=== PATIENT | female | born 1935 | race Caucasian/White ===

== ENCOUNTER 2018-07-04 12:23 | Outpatient (CLI) | payer OTHER | END 2018-07-04 12:40 | disposition home or self-care (01) | LOC: OFIC 805 12:23 | DX: R42 Dizziness and giddiness (principal) ==

== ENCOUNTER 2021-04-28 15:50 | Outpatient (CLI) | payer OTHER | END 2021-04-28 15:53 | disposition home or self-care (01) | LOC: PPH VACUNA 15:50 | PROVIDERS: ATTEND Emergency Medicine Pediatric Emergency Medicine | DX: Z23 Encounter for immunization (principal) ==

== ENCOUNTER 2021-10-24 08:37 | Outpatient (CLI) | payer OTHER | END 2021-10-24 08:54 | disposition home or self-care (01) | LOC: MRI 08:37 | PROVIDERS: ATTEND Physical Medicine & Rehabilitation | DX: M54.59 Other low back pain (principal) | CPT/HCPCS: 72148 ==

== ENCOUNTER 2021-11-17 07:18 | Outpatient (CLI) | payer OTHER | END 2021-11-17 07:21 | disposition home or self-care (01) | LOC: NUCLEAR 07:18 | PROVIDERS: ATTEND Internal Medicine Gastroenterology | DX: K59.1 Functional diarrhea (principal) | CPT/HCPCS: 78227; A9537; J2805 ==

== ENCOUNTER 2021-11-23 08:00 | Outpatient (CLI) | payer OTHER | END 2021-11-23 08:30 | disposition home or self-care (01) | LOC: PPH VACUNA 08:00 | PROVIDERS: ATTEND Emergency Medicine Pediatric Emergency Medicine | DX: Z23 Encounter for immunization (principal); Z71.85 Encounter for immunization safety counseling ==

== ENCOUNTER 2022-02-15 12:04 | Outpatient (CLI) | payer OTHER | END 2022-02-15 12:09 | disposition home or self-care (01) | LOC: LAB 12:04 | PROVIDERS: ATTEND Radiology Diagnostic Radiology | DX: K43.9 Ventral hernia without obstruction or gangrene (principal) ==